=== PATIENT | male | born 1965 | race Caucasian/White ===

== ENCOUNTER 2022-04-02 23:21 | Emergency (ER) | payer OTHER ==
[~2022-04-02] VITALS: Ht 182.9 cm; Wt 80.0 kg
[2022-04-03] MEDS ORDERED: LIDOCAINE HCL/PF 1% 10 MG/ML 5ML VIAL INFIL ONE (03:00)
[2022-04-03] MEDS ORDERED: BACITRACIN ZINC OINT UDPKT TOP ONE (03:00)
[2022-04-03] MEDS ORDERED: TETANUS, DIPHTHERIA, PERTUSSIS VAC/PF 0.5ML (>10YR OLD) IM ONE (03:00)
[2022-04-03] MEDS ORDERED: CEPH500C2 MT (04:13)
[2022-04-03 05:01] VITALS: BP 135/78
== END 2022-04-03 05:04 | disposition home or self-care (01) ==
LOC: ER 23:21
DX: S01.21XA Laceration without foreign body of nose, initial encounter (principal); W01.0XXA Fall on same level from slipping, tripping and stumbling without subsequent striking against object, initial encounter; Y93.89 Activity, other specified; Y92.89 Other specified places as the place of occurrence of the external cause
CPT/HCPCS: 12013; 70450; 70486; 90471; 90715; 99284; J3490